=== PATIENT | female | born 1960 | race Caucasian/White ===

== ENCOUNTER 2019-04-18 17:42 | Inpatient (IN) ==
[2019-04-18] MEDS ORDERED: NS 1,000 ML IV ONE ×3 (17:51→20:00)
[2019-04-18] MEDS ORDERED: ZOFRAN IV ONE (18:04)
[2019-04-18 18:28] LABS: URINE SOURCE CLEAN CATCH
[2019-04-18 18:36] LABS: BILIRUBIN URINE NEGATIVE (NEGATIVE); BLOOD URINE NEGATIVE (NEGATIVE); COLOR ORANGE; GLUCOSE URINE 500 mg/dL (NEGATIVE); KETONE URINE NEGATIVE (NEGATIVE); LEUKOCYTES URINE LARGE (NEGATIVE); NITRITE URINE NEGATIVE (NEGATIVE); PH URINE 6.5; PROTEIN URINE TRACE mg/dL (NEGATIVE); SP GRAVITY URINE 1.016; TURBIDITY URINE HAZY (CLEAR); UROBILINOGEN URINE 2 mg/dL (NORMAL)
[2019-04-18] MEDS ORDERED: NS 500 ML IV ONE (18:36)
[2019-04-18 18:37] LABS: BASO# 0.01 X1000 (0.0-0.2); BASO% 0.2 % (0.0-0.8); EOS# 0.02 X1000 (0.0-0.7); EOS% 0.3 % (0.0-10.0); HEMATOCRIT 33.6 % (37.0-47.0); HEMOGLOBIN 11.2 g/dL (12.0-16.0); LYMPH# 0.57 X1000 (1.2-3.4); LYMPH% 9.9 % (20.5-51.1); MCH 30.4 PG (27-31); MCHC 33.3 g/dL (33-37); MCV 91.1 FL (81-99); MONO# 0.13 X1000 (0.11-0.59); MONO% 2.3 % (1.7-9.3); MPV 9.2 FL (7.4-10.4); NEUT% 87.3 % (42.2-75.2); PLT 277 X1000 (130-400); RBC 3.69 XMIL (4.2-5.4); RDW 12.5 % (11.5-14.5); UR EPITHELIAL CELLS <10 /HPF (<10); URINE BACTERIA 4+ /HPF; URINE RBC <10 /HPF (<10); URINE WBC TNTC /HPF (<10); WBC 5.73 X1000 (4.8-10.8)
[2019-04-18] MEDS ORDERED: ROCEPHIN 2 GM in NS 50 ML IV ONE (18:42)
[2019-04-18 18:55] LABS: INR 1.09; PROTIME 14.3 Seconds (11.0-16.0)
[2019-04-18 18:56] LABS: PTT 35.2 Seconds (22.3-41.8)
[2019-04-18] MEDS ORDERED: MOTRIN PO ONE (18:57)
[2019-04-18] MEDS ORDERED: VANCOMYCIN 1 GM/NS 1 GM/250 ML IVPB IV ONE (18:57)
[2019-04-18 18:59] LABS: ALB/GLOB RATIO 1.8; ALBUMIN 3.7 g/dL (3.5-5.0); CREATININE 1.2 mg/dL (0.5-0.9); MAGNESIUM 1.6 mg/dL (1.5-2.7); POTASSIUM 3.3 mmol/L (3.5-5.1); TOTAL BILIRUBIN 0.93 mg/dL (0.20-1.00); TOTAL PROTEIN 5.8 g/dL (6.3-8.3)
[2019-04-18 19:20] LABS: ALLEN TEST YES; BE -0.1 mmoll (-3.0-3.0); BLOOD TYPE ARTERIAL; HCO3-(ACT) 24.7 mmoll (20.0-26.0); METHB 1.4 % (0.0-1.5); O2(CT) 11.1 mL/dL (15.0-23.0); O2HB 90.1 % (95.0-99.0); PCO2(98.6) 33 mmHg (35-45); PO2(98.6) 58 mmHg (60-100); SAMPLE BLOOD; SAO2 94.1 % (95.0-100.0); THB 8.7 g/dL (11.5-17.4); pH(98.6) 7.46 (7.35-7.45)
[2019-04-18 19:21] LABS: MODALITY ROOM AIR
[2019-04-18] MEDS ORDERED: ZOSYN 3.375 GM in NS 50 ML IV ONE (19:42)
[2019-04-18] MEDS ORDERED: LEVOPHED 8 MG in D5 1/2 NS 250 ML IV SCH (19:45)
--- NOTE | 2019-04-18 20:58 | Diag Imaging Result Doc PS360 ---
CT ABD/PELVIS W/IV CONT ONLY - 04/18/2019 INDICATION: abd pain llq, FEVER, CHILLS COMPARISON: 04/22/2018 FINDINGS: The lung bases are clear and the heart size is normal. The liver, gallbladder, spleen, pancreas, adrenals, and kidneys are normal. No bowel obstruction or inflammation. Urinary bladder, uterus, and rectum are normal. 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 There are moderate degenerative changes of the spine. No acute or suspicious bony lesion. IMPRESSION: No acute disease. This exam was performed using automated exposure control, adjustment of mA or kV according to patient size, and/or use of iterative reconstruction technique Electronically signed by Jj Olivares 04/18/2019 8:55 PM
--- NOTE | 2019-04-18 21:01 | Diag Imaging Result Doc PS360 ---
CHEST-PORTABLE - 04/18/2019 INDICATION: cp COMPARISON: 04/22/2018 FINDINGS: The lungs are normally expanded and clear. Heart size and mediastinal contours are normal. No pneumothorax or pleural effusion. IMPRESSION: Negative exam. Electronically signed by Jj Olivares 04/18/2019 8:59 PM
--- NOTE | 2019-04-18 21:08 | PROVIDER DOCUMENTATION ---
This chart was entered by Beverley Lou Scribe, acting as scribe for Gloria Moeller CRNP. HPI-Abdominal Pain/GI Problem - General Chief Complaint: SEPSIS ALERT - D Stated Complaint: TEMP 104 PER PT Time Seen by Provider: 04/18/19 17:50 Source: patient Allergies/Adverse Reactions: Patient Allergies Allergy/AdvReac Type Severity Reaction Status Date / Time No Known Allergies Allergy Verified 03/25/18 13:54 Home Medications: Home Medication List Medication Instructions Recorded Confirmed Last Taken Type ATORVAstatin [Lipitor] 40 mg PO QHS 03/25/18 04/18/19 1 Day Ago History ~03/24/18 Amitriptyline [Elavil] 100 mg PO HS 03/25/18 04/18/19 1 Day Ago History ~03/24/18 Benazepril/Hydrochlorothiazide 1 each PO QAM 03/25/18 04/18/19 1 Day Ago History [Benazepril-Hctz 20-12.5 mg Tab] ~03/24/18 Furosemide [Lasix] 40 mg PO DAILY 03/25/18 04/18/19 1 Day Ago History ~03/24/18 Insulin Aspart [Novolog] 10 unit SQ TID 03/25/18 04/18/19 03/25/18 History Insulin Glargine [Lantus] 60 unit SUBQ QHS 03/25/18 04/18/19 1 Day Ago History ~03/24/18 Potassium Chloride 10 meq PO DAILY 03/25/18 04/18/19 1 Day Ago History ~03/24/18 Ranitidine HCl [Zantac] 150 mg PO QAM 03/25/18 04/18/19 1 Day Ago History ~03/24/18 Potassium Chloride E.r. [Klor-Con] 20 meq PO BID tablet 03/29/18 04/18/19 Unk nown Rx Promethazine [Phenergan] 25 mg PO Q6H PRN PRN #20 tab 04/22/18 04/18/19 Unknown Rx Topiramate 50 mg PO BID 04/18/19 04/18/19 Unknown History - History of Present Illness-ABD Nature of Presenting Problems: 58 y/o female presents to ED with LLQ pain, fever, and N/V onset today. Pt reports highest temperature at home was 104. Pt states she took tylenol prior to arrival. Pt reports hx diverticulitis. Pt is alert and oriented. Abdominal Pain Onset Location: reports: LLQ Pain Radiation: reports: no radiation Quality of Pain: reports: aching Severity in ED: reports: mild, moderate Onset/Duration: reports: this morning Timing: reports: still present Activities at Onset: reports: none Exposure to sick contacts?: No Modifying Factors: worse with: palpation Associated Symptoms: reports: fever/chills, nausea, vomiting, other (LLQ pain) Last BM: unsure Dark Stools Present?: reports: none noticed Rectal Bleeding: reports: none Rectal Pain: reports: none Similar Symptoms Previously?: No Recently seen or treated by another doctor?: No Review of Systems - Adult - REVIEW OF SYSTEMS - ADULT Constitutional: reports: fever. denies: chills Eyes: reports: no symptoms reported Ears, Nose, Mouth & Throat: reports: no symptoms reported Cardiovascular: denies: chest pain, palpitations Respiratory: denies: cough, shortness of breath Gastrointestinal: reports: abdominal pain, nausea, vomiting. denies: diarrhea Genitourinary: reports: no symptoms reported Musculoskeletal: reports: no symptoms reported Integumentary: reports: no symptoms reported Neurological: reports: no symptoms reported Psychiatric: reports: no symptoms reported Endocrine: reports: no symptoms reported Hematologic/Lymphatic: reports: no symptoms reported Allergic/Immunologic: reports: no symptoms reported All Other Systems: Reviewed and Negative Past History - Adult - PAST MEDICAL HISTORY-ADULT Review of Records: reports: Old Records Reviewed, Nursing Assessment Review, Medications Reviewed Major Childhood Illnesses: reports: denies history Cardiovascular: reports: HTN, heart valve problem (MVP), hyperlipidemia Respiratory: reports: denies history Gastrointestinal: reports: denies history Obstetrical/Gynecological: reports: denies history Genitourinary: reports: denies history Musculoskeletal: reports: other (neuropathy) Neurological: reports: denies history Psychiatric: reports: depression Endocrine/Immune: reports: Diabetes Diabetes Type: Type 2 Other Conditions: reports: denies history - PRIOR SURGERIES/PROCEDURES Surgical/Procedure History: reports: BTL, orthopedic (extremity) (hand) - IMMUNIZATION STATUS Childhood Immunizations: See Nurse Assessment Flu Vaccine: See Nurse Assessment - FAMILY HISTORY Family History: reviewed, not pertinent - SOCIAL HISTORY Smoking: quit greater than 1 year Substance Use: none/never Alcohol Use Frequency: never Living Situation: family Physical Exam-General - PHYSICAL EXAM-ADULT Initial Vital Signs Reviewed: Yes (febrile) - CONSTITUTIONAL General Appearance: alert, no apparent distress, other (ill appearing). negative: appears well - EYES Eyes: PERRL/EOMI, pink conjunctivae - HEAD, EARS, NOSE, MOUTH & THROAT HENMT: normocephalic/atraumatic, moist mucous membranes, normal ENT inspection - NECK Neck: non-tender, full range of motion - RESPIRATORY Respiratory: chest non-tender, lungs clear, normal breath sounds - CARDIOVASCULAR Cardiovascular: normal peripheral pulses, regular rate, rhythm - GASTROINTESTINAL (ABDOMEN) Abdominal Exam: normal bowel sounds, soft, tenderness (LLQ) - MUSCULOSKELETAL Back Exam: normal inspection, no CVA tenderness, no vertebral tenderness Extremity: normal range of motion, non-tender - SKIN Integumentary: normal color, warm/dry - NEUROLOGIC Neurologic: grossly normal - PSYCHIATRIC Psych/Mental Status: normal mood/affect, normal thought content, normal thought process, oriented x 3 Progress - PLAN OF CARE/RESULTS Progress/Plan/Lab Results: Vital Signs - 8 hr 04/18/19 17:46 Temperature 100.5 F H Pulse Rate 120 H Respiratory Rate 20 Blood Pressure 149/110 O2 Sat by Pulse Oximetry 94 L Orders Category Date Time Status Cardiac Monitoring DIRECTED Care 04/18/19 17:50 Active Finger Stick Blood Sugar (ED) DIRECTED Care 04/18/19 17:51 Active IV Insertion ORDERED Care 04/18/19 17:50 Active Notify MD of + Sepsis Screen NOW Care 04/18/19 17:50 Active Notify Physician As Ordered Care 04/18/19 17:[address] ABD/PELVIS W/IV CONT ONLY [CT] Stat Exams 04/18/19 18:04 Ordered BLOOD CULTURE [BLDCUL] Stat Lab 04/18/19 17:50 Uncollected CBC WITH DIFF [HEME] Stat Lab 04/18/19 17:50 Uncollected CK PROFILE [SP CHEM] Stat Lab 04/18/19 17:50 Uncollected COMPREHENSIVE METABOLIC PANEL [CHEM] Stat Lab 04/18/19 17:50 Uncollected Flu Swab [INFLUENZA SCREEN A/B] Stat Lab 04/18/19 17:51 Uncollected LACTATE, PLASMA [CHEM] Q3H Lab 04/18/19 18:00 Uncollected LACTATE, PLASMA [CHEM] Q3H Lab 04/18/19 21:00 Uncollected LACTATE, PLASMA [CHEM] Q3H Lab 04/19/19 00:00 Uncollected MAGNESIUM [CHEM] Stat Lab 04/18/19 17:51 Uncollected PROTIME WITH INR [COAG] Stat Lab 04/18/19 17:50 Uncollected PTT [COAG] Stat Lab 04/18/19 17:50 Uncollected TROPONIN T Stat Lab 04/18/19 17:50 Uncollected TYPE & SCREEN [BBK] Stat Lab 04/18/19 17:51 Uncollected URINALYSIS W/POSS RFLX CULT [URINALYSIS] Stat Lab 04/18/19 17:50 Uncollected 0.9% Sodium Chloride Inj [Ns] 1,000 ml Med 04/18/19 17:51 Active IV 999 mls/hr Oxygen Device Stat Oth 04/18/19 17:50 Active 1855: notified by RN pt hypotensive, fluids have not been started. Pt is alert and oriented. RN to begin fluids, Dr Dudley has now seen and examined the patient. he recommends adding vancomycin adn agrees with current other orders. Will monitor repsonse to IVF and order pressors as needed. 1904: d/w Dr. Cubatien the patients impaired renal function and CT contrast. He recommends hydration and completing the CT with contrast. 1942: Pt BP remains 80's SBP Dr DUDLEY back to bedside with BALANCE STAFF INSPECTOR, recommends starting levophed gtt and addding zosyn for broad coverage even with rocephen 1999: Dr Dudley at bedside. Awaiting levophed gtt to be started. 2024: Bp has improved with levophed qtt, awaiting ct results for admission Laboratory Tests 04/18/19 04/18/19 04/18/19 18:08 18:08 18:08 WBC 5.73 RBC 3.69 L Hgb 11.2 L Hct 33.6 L MCV 91.1 MCH 30.4 MCHC 33.3 RDW Std Deviation 12.5 Plt Count 277 MPV 9.2 Immature Gran % (Auto) 0.0 Neut % (Auto) 87.3 H Lymph % (Auto) 9.9 L [place] % (Auto) 2.3 Eos % (Auto) 0.3 Baso % (Auto) 0.2 Immature Gran # (Auto) 0.00 Neut # (Auto) 5.00 Lymph # (Auto) 0.57 L [place] # (Auto) 0.13 Eos # (Auto) 0.02 Baso # (Auto) 0.01 PT 14.3 INR 1.09 PTT (Actin FS) 35.2 Specimen Type Sample Site pH pCO2 pO2 HCO3 Base Excess Oxyhemoglobin ABG O2 Sat (Calculated) ABG O2 Saturation ABG Carboxyhemoglobin ABG Methemoglobin Johnny Test A-a O2 Difference Total Hemoglobin Lactate Blood Gas Modality FiO2 % Sodium 136 Potassium 3.3 L Chloride 97 L Carbon Dioxide 21 L Anion Gap 18 BUN 28 H Creatinine 1.2 H Estimated GFR/1.73 m2 46 BUN/Creatinine Ratio 23 Glucose 172 H Calculated Osmolality 282 Calcium 9.0 Magnesium 1.6 Total Bilirubin 0.93 AST 58 H ALT 53 H Alkaline Phosphatase 119 H Creatine Kinase 114 Troponin T Total Protein 5.8 L Albumin 3.7 Globulin 2.1 Albumin/Globulin Ratio 1.8 Plasma Lactate Urine Source Urine Color Urine Turbidity Urine pH Ur Specific [place] Urine Protein Ur Glucose (Stick) Ur Ketones (Stick) Urine Blood Urine Nitrite Urine Bilirubin Urobilinogen Dipstick Urine Leukocytes Urine WBC (Auto) Urine RBC (Auto) U Epithel Cells (Auto) Urine Bacteria (Auto) Blood Type Blood Type Confirm Antibody Screen 04/18/19 04/18/19 04/18/19 18:08 18:08 18:08 WBC RBC Hgb Hct MCV MCH MCHC RDW Std Deviation Plt Count MPV Immature Gran % (Auto) Neut % (Auto) Lymph % (Auto) [place] % (Auto) Eos % (Auto) Baso % (Auto) Immature Gran # (Auto) Neut # (Auto) Lymph # (Auto) [place] # (Auto) Eos # (Auto) Baso # (Auto) PT INR PTT (Actin FS) Specimen Type Sample Site pH pCO2 pO2 HCO3 Base Excess Oxyhemoglobin ABG O2 Sat (Calculated) ABG O2 Saturation ABG Carboxyhemoglobin ABG Methemoglobin Johnny Test A-a O2 Difference Total Hemoglobin Lactate Blood Gas Modality FiO2 % Sodium Potassium Chloride Carbon Dioxide Anion Gap BUN Creatinine Estimated GFR/1.73 m2 BUN/Creatinine Ratio Glucose Calculated Osmolality Calcium Magnesium Total Bilirubin AST ALT Alkaline Phosphatase Creatine Kinase Troponin T 0.018 Total Protein Albumin Globulin Albumin/Globulin Ratio Plasma Lactate 2.8 H Urine Source CLEAN CATCH Urine Color ORANGE Urine Turbidity HAZY Urine pH 6.5 Ur Specific [place] 1.016 Urine Protein TRACE A Ur Glucose (Stick) 500 A Ur Ketones (Stick) NEGATIVE Urine Blood NEGATIVE Urine Nitrite NEGATIVE Urine Bilirubin NEGATIVE Urobilinogen Dipstick 2 A Urine Leukocytes LARGE A Urine WBC (Auto) TNTC A Urine RBC (Auto) <10 U Epithel Cells (Auto) <10 Urine Bacteria (Auto) 4+ Blood Type Blood Type Confirm Antibody Screen 04/18/19 04/18/19 04/18/19 18:08 19:01 19:10 WBC RBC Hgb Hct MCV MCH MCHC RDW Std Deviation Plt Count MPV Immature Gran % (Auto) Neut % (Auto) Lymph % (Auto) [place] % (Auto) Eos % (Auto) Baso % (Auto) Immature Gran # (Auto) Neut # (Auto) Lymph # (Auto) [place] # (Auto) Eos # (Auto) Baso # (Auto) PT INR PTT (Actin FS) Specimen Type ARTERIAL Sample Site R RADIAL pH 7.46 H pCO2 33 L pO2 58 L HCO3 24.7 Base Excess -0.1 Oxyhemoglobin 90.1 L ABG O2 Sat (Calculated) 11.1 L ABG O2 Saturation 94.1 L ABG Carboxyhemoglobin 3.00 H ABG Methemoglobin 1.4 Johnny Test YES A-a O2 Difference 50.0 Total Hemoglobin 8.7 L Lactate 1.00 Blood Gas Modality ROOM AIR FiO2 % 21.0 Sodium Potassium Chloride Carbon Dioxide Anion Gap BUN Creatinine Estimated GFR/1.73 m2 BUN/Creatinine Ratio Glucose Calculated Osmolality Calcium Magnesium Total Bilirubin AST ALT Alkaline Phosphatase Creatine Kinase Troponin T Total Protein Albumin Globulin Albumin/Globulin Ratio Plasma Lactate Urine Source Urine Color Urine Turbidity Urine pH Ur Specific [place] Urine Protein Ur Glucose (Stick) Ur Ketones (Stick) Urine Blood Urine Nitrite Urine Bilirubin Urobilinogen Dipstick Urine Leukocytes Urine WBC (Auto) Urine RBC (Auto) U Epithel Cells (Auto) Urine Bacteria (Auto) Blood Type O POSITIVE Blood Type Confirm O POSITIVE Antibody Screen NEGATIVE Result Diagrams: 04/18/19 18:08 04/18/19 18:08 - EKG 1 Time of EKG reading by physician:: 20:38 EKG Read and Signed by:: Sunny Dudley EKG Interpretation (*Must complete 3 of following elements*): Abnormal Rate: 102 Rhythm: Sinus tach with occasional PVCs [place]: normal QRS: other (low voltage QRS) NV Interval: normal ST Wave: non-specific ST changes - XRAY 1 XRAY Study: Chest Impression: See EMR Report (CHEST-PORTABLE - 04/18/2019 INDICATION: cp COMPARISON: 04/22/2018 FINDINGS: The lungs are normally expanded and clear. Heart size and mediastinal contours are normal. No pneumothorax or pleural effusion. IMPRESSION: Negative exam. Electronically signed by Jj Olivares 04/18/2019 8:59 PM 04/18/192058 Interpreting Physician: Jj Olivares MD Dictated Date/Time: 04/18/192055 cc: Sunny Dudley MD; Lamar Georges) - CT/MRI 1 CT Study: Abdomen, Pelvis Impression: See EMR Report ([facility] - [address], [address] [address] [facility] - [address] [place] [address] Department of Imaging Patient: FÁTIMA DELEON Date: 04/18/19#: [id number] : 8ADM Status: [facility] ERAt#: [id number] Age/Sex: 58/FRoom/Bed: Loc: ED Ordering Physician: Gloria Moeller Family Physician: Lamar Georges Reason for Procedure: abd pain llq, FEVER, CHILLS Signed CT ABD/PELVIS W/IV CONT ONLY - 04/18/2019 INDICATION: abd pain llq, FEVER, CHILLS COMPARISON: 04/22/2018 FINDINGS: The lung bases are clear and the heart size is normal. The liver, gallbladder, spleen, pancreas, adrenals, and kidneys are normal. No bowel obstruction or inflammation. Urinary bladder, uterus, and rectum are normal. 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 There are moderate degenerative changes of the spine. No acute or suspicious bony lesion. IMPRESSION: No acute disease. This exam was performed using automated exposure control, adjustment of mA or kV according to patient size, and/or use of iterative reconstruction technique Electronically signed by Jj Olivares 04/18/2019 8:55 PM 04/18/192054 Interpreting Physician: Jj Olivares MD Dictated Date/Time: 04/18/192050 cc: Gloria Moeller; Lamar Georges) - CONSULTS/PCP/HOSPITALIST Notification #1 *Consult/PCP/Hospitalist*: hospitalist paged at 2101 Time Discussed: 21:07 Reason/Comments: UTI, sepsis Consult Disposition: Admit Departure - Departure Date of Disposition Decision: 04/18/19 Time of Disposition Decision: 21:04 DIAGNOSIS: UTI (urinary tract infection), Septic shock Disposition: ADMITTED INPATIENT 09 Certified Medical Emergency: Emergent Condition: Fair Referrals and Follow-Ups: Lamar Georges CRNP [Primary Care Provider] - - Critical Care Note This patient required my direct & personal management of CC.: No Attestation - Physician/ MILLY Attestation Patient care was provided by Advanced Practice Provider:: Yes Advanced Practice Provider:: Gloria Moeller Advanced Practice Provider documentation review:: The Mid-level provider documentation, treatment plan and medical decision making was reviewed by the physician who agrees with all treatment and medical decision making by the [facility]. The physician spent face to face time with patient:: Yes Advanced Practice Provider documentation review:: Supervising physician onsite and consulted in the evaluation and care of this patient. The physician did have a face to face encounter with the patient. This chart was documented by the indicated scribe, (Beverley Lou Scribe) and accurately reflects the services I performed and decisions made by me, Gloria Moeller CRNP, as attested by the provider's signature.
[2019-04-18] MEDS ORDERED: SODIUM CHLORIDE 0.9% INJ SCH (22:00)
[2019-04-18] MEDS ORDERED: TYLENOL PO PRN (23:16)
[2019-04-18] MEDS ORDERED: RESTORIL PO ONE (23:16)
[2019-04-18] MEDS: NS 1,000 ML IV SCH (23:19)
[2019-04-18] MEDS: ZOSYN 3.375 GM in NS 50 ML IV SCH (23:20)
[2019-04-18] MEDS: PROTONIX IV SCH (23:21)
--- NOTE | 2019-04-18 23:37 | EKG Report ---
Test Performed on : 04/18/2019 8:37:07 PM Test Reason : tachy Blood Pressure : / mmHG Vent. Rate : 102 BPM Atrial Rate : 102 BPM P-R Int : 154 ms QRS Dur : 078 ms QT Int : 338 ms P-R-T Axes : 064 -19 070 degrees QTc Int : 440 ms Sinus tachycardia. with occasional premature ventricular complexes. Low voltage QRS Nonspecific ST and T wave abnormality Abnormal ECG When compared with ECG of 22-APR-2018 14:19, Criteria for Septal infarct are no longer present Nonspecific T wave abnormality now evident in Lateral leads Unconfirmed Result
[2019-04-19] MEDS: ZOFRAN IV PRN ×2 (00:04→06:17)
[2019-04-19 00:46] LABS: URINE SOURCE CATH
[2019-04-19 01:49] LABS: COLOR YELLOW; UR EPITHELIAL CELLS <10 /HPF (<10); URINE BACTERIA 1+ /HPF; URINE RBC <10 /HPF (<10)
[2019-04-19 01:50] LABS: BILIRUBIN URINE NEGATIVE (NEGATIVE); BLOOD URINE TRACE (NEGATIVE); GLUCOSE URINE 100 mg/dL (NEGATIVE); KETONE URINE 20 mg/dL (NEGATIVE); LEUKOCYTES URINE SMALL (NEGATIVE); NITRITE URINE POSITIVE (NEGATIVE); PROTEIN URINE TRACE mg/dL (NEGATIVE); SP GRAVITY URINE 1.005; TURBIDITY URINE CLEAR (CLEAR); UROBILINOGEN URINE NORMAL (NORMAL)
[2019-04-19] MEDS: ZOSYN 3.375 GM in NS 50 ML IV SCH ×4 (04:20→21:20)
--- NOTE | 2019-04-19 06:07 | HISTORY AND PHYSICAL ---
CHIEF COMPLAINT: Fever, left flank pain and back pain one day prior to admission. HISTORY OF PRESENT ILLNESS: Ms. Shellie Alcala is a 58-year-old female, and she does have a history of diabetes mellitus, hypertension, hyperlipidemia and presents to the hospital because of fever, along with the left flank pain and back pain one day prior to admission. She also describes having dysuria and also low abdominal pains. She denies any hematuria. On arrival to the hospital, UA did show a large amount of leukocytes with numerous WBCs. She was also noted to be hypotensive while in the emergency room. Her blood pressure was as low as 74/50. She required IV fluids and also pressors, and has now been admitted to the intensive care unit for further management. PAST MEDICAL HISTORY: Hypertension, mitral valve prolapse, hyperlipidemia, diabetes mellitus, diverticulosis, diabetic gastroparesis, chronic pain. PAST SURGICAL HISTORY: She has had bilateral tubal ligation, as well as left foot surgery. SOCIAL HISTORY: No cigarette smoking. No alcohol or drug use. ALLERGIES: No known drug allergies. FAMILY HISTORY: Positive for coronary artery disease, as well as diabetes. MEDICATIONS: Medications include the followin. Atorvastatin 40 mg p.o. at bedtime. 2. Elavil 100 mg p.o. at bedtime. 3. Benazepril/hydrochlorothiazide 20/12.5 once a day. 4. Lasix 40 mg p.o. daily. 5. NovoLog 10 units subcutaneous 3 times a day. 6. Lantus 60 units subcutaneous twice a day. 7. Potassium chloride 10 mEq p.o. daily. 8. Zantac 150 mg p.o. in the morning. 9. Potassium chloride extended release 20 mEq p.o. twice a day. 10. Promethazine 25 mg p.o. q. 6 hours p.r.n. 11. Topiramate 50 mg p.o. twice a day. REVIEW OF SYSTEMS: General: Question of fever. EMT I/85: No headaches. Eyes: Blurred vision. ENT: No sinus problem, hearing loss. Cardiovascular: No chest pain. Respiratory: No cough. GI: Has nausea with vomiting. Also, constipation with abdominal pains. : She has dysuria, but no hematuria. Musculoskeletal: Has joint pains. Dermatology: No skin lesions. Hematologic: No bleeding problems. Psychiatric: No anxiety or depression. Allergic/immunologic: No symptoms suggestive of allergic rhinitis. Endocrinology: She has diabetes, but no thyroid disease. EXAMINATION: Vital Signs: Vital signs are as follows: Temperature is 99.3, pulse is 80, respirations 14, blood pressure is 118/64, oxygen saturation is 93%. HEENT: She is atraumatic, normocephalic. She is anicteric. Extraocular movements intact. Pupils equal, poorly reactive to light. No oral lesions. Neck: No lymphadenopathy or thyromegaly. Cardiovascular system: S1, S2. Respiratory system: Has evidence of good air entry bilaterally. Abdomen: Soft. She has some vague tenderness to the left flank region. No masses felt. Extremities: No evidence of edema in the lower extremities. Central nervous system: No obvious focal deficit noted. LABORATORY DATA: WBC is 5.73, hematocrit is 33.6, platelet count is 277. INR is 1.07. ABG 7.46/33/58/94.1. Sodium 136, potassium 3.3, chloride is 97, bicarbonate is 21. BUN is 28, creatinine is 1.2, glucose 172. AST 58, ALT 53, alkaline phosphatase 119. UA shows large amount of leukocytes with numerous WBCs. IMAGING STUDIES: Chest x-ray normal. CT scan of the abdomen and pelvis with no acute disease. EKG shows sinus tachycardia with occasional PVCs and nonspecific ST-T abnormalities. ASSESSMENT AND PLAN: 1. Septic shock. Maintain patient on intravenous fluids, pressors, antibiotics. Follow up on culture report. 2. Urinary tract infection. Obtain urine culture. Maintain patient on empiric antibiotics. 3. Abnormal liver function tests. Check hepatitis panel, as well as abdominal ultrasound. 4. Anemia. Check iron studies along with B 12 and folate level and stool for occult blood. 5. Hypokalemia. Replace potassium. Check magnesium level. 6. Acute kidney injury. Maintain patient on intravenous fluids. Follow up on renal function. Avoid nephrotoxic agent. 7. Diabetes mellitus. Maintain patient on sliding scale insulin. Monitor blood sugar levels. Check hemoglobin A1c level. 8. Hypertension. The patient is currently on pressors now for low blood pressure. 9. Deep vein thrombosis prophylaxis. Sequential compression devices. 10. Gastrointestinal prophylaxis. Proton pump inhibitor. cc: Han Suazo MD
[2019-04-19] MEDS: HUMULIN R SUBQ SCH ×4 (06:17→20:28)
[2019-04-19] MEDS: NS 1,000 ML IV SCH ×2 (06:17→10:47)
[2019-04-19 06:31] LABS: HEMOGLOBIN A1C 7.3 % (4.8-6.0)
[2019-04-19 06:48] LABS: IRON SATURATION 6 %; TIBC 196 ug/dL; TOTAL IRON 11 ug/dL (49-151); UNBOUND IRON 185 ug/dL (112-346)
[2019-04-19] MEDS ORDERED: PHENERGAN PO PRN (09:22)
[2019-04-19 09:47] LABS: CALCIUM 8.3 mg/dL (8.8-10.2); CREATININE 1.2 mg/dL (0.5-0.9); POTASSIUM 3.2 mmol/L (3.5-5.1)
[2019-04-19] MEDS ORDERED: LANTUS INSULIN SUBQ SCH ×2 (10:00→21:00)
--- NOTE | 2019-04-19 10:35 | PROGRESS NOTE ---
DATE: 04/19/2019 INTERVAL HISTORY: Ms. Alcala presented with septic shock due to acute urinary tract infection. Overnight, she did have a fever episode. Her pulse has been decreasing. She continues to feel not well. She denies known history of coronary artery disease or smoking. SUBJECTIVE: Ms. Alcala continues to complain of left lower quadrant discomfort. She denies any more nausea or vomiting. She was able to eat her breakfast a little bit. Her last bowel movement was probably 5 to 6 days ago. VITALS: Currently temperature of 99.5 degrees, pulse of 86, respiratory rate 15, blood pressure 106/55. She is saturating 95% on room air. PHYSICAL EXAMINATION: She is not in any acute distress.HEENT: Oral cavity is moist. Lungs: Air entry bilaterally equal. No wheeze, rhonchi, crackles. Cardiovascular: S1, S2 normal. No murmur or gallop. Abdomen: Soft. Left lower quadrant tenderness is present. She has bilateral back tenderness as well. Active bowel sounds. Extremity: She does not have lower extremity edema she is alert and oriented x3. : She has a urine catheter. LABS: Repeat BMP suggest hypokalemia. She continues to have kidney dysfunction, unclear if this suggests new or chronic. She has hyperglycemia. Her hypomagnesemia is currently being repleted. Urinalysis positive. Urine culture and blood culture are in lab. No new imaging. ASSESSMENT AND PLAN: 1. Septic shock from acute urinary tract infection due to gram-negative radha. Follow up final urine and blood culture results. She received 4 L of intravenous fluids boluses. I will keep her on current rate of intravenous fluids and intravenous norepinephrine to maintain MAP more than 65 mmHg. Continue intravenous Zosyn. Her CT scan of the abdomen and pelvis did not detect acute pyelonephritis. 2. Transaminitis and lactic acidosis with kidney dysfunction. These could be in the setting of septic shock. I will follow up with liver function tests. Hepatitis panel has been ordered. Her kidney dysfunction is currently stable. She previously did have intermittent kidney dysfunction and could potentially have a component of diabetic nephropathy. I will continue to monitor it. 3. Hypokalemia and hypomagnesemia currently being repleted. 4. History of insulin-dependent diabetes mellitus and diabetic peripheral neuropathy. Resume lower than her usual dose of insulin glargine and insulin mealtime with sliding scale insulin. Considering her oral intake could be inconsistent, I will adjust insulin according to her blood sugar response. Also continue her topiramate for diabetic peripheral neuropathy. 5. Constipation. Her last bowel movement was 5 days ago according to report. I will start her on stool softeners. She also had history of diverticulosis. DISPOSITION: I will continue to monitor patient in ICU for need for intravenous pressors. TIME SPENT: Plan of care discussed with her. All of her questions satisfactorily answered. cc: Vince Patino MD MTDD
[2019-04-19] MEDS: MIRALAX PO SCH ×2 (10:47→21:29)
[2019-04-19] MEDS: DULCOLAX PR SCH ×2 (10:48→21:29)
[2019-04-19] MEDS: MAGNESIUM SULFATE 2 GM/S.W.I. 2 GM/50 ML IVPB IV SCH ×2 (10:49→13:30)
[2019-04-19] MEDS: HUMALOG SUBQ SCH ×2 (10:50→17:18)
[2019-04-19] MEDS: KLOR-CON PO SCH ×2 (11:22→20:29)
[2019-04-19] MEDS ORDERED: LANTUS INSULIN SUBQ ONE (14:04)
--- NOTE | 2019-04-19 16:08 | Diag Imaging Result Doc PS360 ---
EXAM: US ABDOMEN-COMPLETE HISTORY: abn lfts TECHNIQUE: Abdominal ultrasound COMPARISON: CT from 02/17/2020 FINDINGS: No abdominal aortic aneurysm. There is atherosclerosis. Normal inferior vena cava. There is fatty infiltration of the liver. The common bile duct measures 6 mm. There is sludge within the gallbladder with several tiny stones. Normal right kidney. No hydronephrosis. Normal left kidney. No hydronephrosis. Spleen measures 13.4 cm in length. No ascites. IMPRESSION: 1.Fatty infiltration of the liver 2.Mild cholelithiasis 3.Mild splenomegaly 4. Electronically signed by Seven Hancock 04/19/2019 4:06 PM
[2019-04-19] MEDS: LANTUS INSULIN SUBQ SCH (20:29)
[2019-04-19] MEDS: LIPITOR PO SCH (20:29)
[2019-04-19] MEDS: ELAVIL PO SCH (20:30)
[2019-04-19] MEDS: TOPAMAX PO SCH (20:30)
[2019-04-19] MEDS: PROTONIX IV SCH (21:20)
[2019-04-20] MEDS: NS 1,000 ML IV SCH (01:11)
[2019-04-20] MEDS: ZOSYN 3.375 GM in NS 50 ML IV SCH ×4 (03:06→21:08)
[2019-04-20 05:48] LABS: BASO# 0.02 X1000 (0.0-0.2); BASO% 0.3 % (0.0-0.8); EOS% 1.7 % (0.0-10.0); HEMATOCRIT 29.7 % (37.0-47.0); HEMOGLOBIN 9.7 g/dL (12.0-16.0); LYMPH# 1.26 X1000 (1.2-3.4); MCH 30.3 PG (27-31); MCHC 32.7 g/dL (33-37); MCV 92.8 FL (81-99); MONO# 0.66 X1000 (0.11-0.59); NEUT# 3.96 X1000 (1.4-6.5); PLT 198 X1000 (130-400); RDW 12.3 % (11.5-14.5)
[2019-04-20 06:22] LABS: AGAP 11; BUN 14 mg/dL (8-22); CALCIUM 8.1 mg/dL (8.8-10.2); CHLORIDE 107 mmol/L (98-107); COSMO 287; CREATININE 0.9 mg/dL (0.5-0.9); ESTIMATED GFR > 60; GLUCOSE 290 mg/dL (70-104); POTASSIUM 3.9 mmol/L (3.5-5.1); SODIUM 138 mmol/L (136-145); TCO2 20 mmol/L (25-35)
[2019-04-20] MEDS: HUMULIN R SUBQ SCH ×4 (06:22→20:45)
[2019-04-20] MEDS: HUMALOG SUBQ SCH ×3 (06:23→16:40)
[2019-04-20 09:28] LABS: ALB/GLOB RATIO 1.4; ALBUMIN 2.9 g/dL (3.5-5.0); DIRECT BILIRUBIN 0.1 mg/dL (0.00-0.20); TOTAL BILIRUBIN 0.34 mg/dL (0.20-1.00)
--- NOTE | 2019-04-20 09:31 | PROGRESS NOTE ---
DATE: 04/20/2019 SUBJECTIVE: The patient reports feeling fine. She has not had any bowel movement for the last week. She reported that she is aware of the problem and remedy developer not taking care of that. No other issues noted as per nursing staff overnight. She has not required any vasopressors during the last 24 hours. OBJECTIVE: Vital Signs: Temperature 99.2 degrees, heart rate 70, respiratory rate 20, blood pressure 121/62, and O2 saturation 94% on room air. General: On examination, this is a 58-year- old female lying in bed, in no acute distress. Cardiovascular: S1 and S2 heard. No murmurs, gallops, or rubs. Respiratory: Clear bilaterally to auscultation. No work of breathing. Not using accessory muscles. Abdomen: Soft. Mild left lower quadrant tenderness present. No organomegaly noted. Bowel sounds present. Extremities: No clubbing, cyanosis, or edema. Peripheral pulses present in both legs. Genitourinary: The patient has a urinary catheter with clear urine. Neurological: Patient is alert and oriented x3. Moves all extremities. LABORATORY DATA: White cell count 6, hemoglobin 9.7, hematocrit 29.7, platelets are 198,000, with BMP that is unremarkable except glucose 290 with hemoglobin A1c 7.3, calcium 8.1, and urine culture showed Klebsiella pneumoniae. Blood culture showed gram-negative rods, but the final sensitivity is not back from the blood culture. ASSESSMENT AND PLAN: 1. Septic shock from urinary tract infection secondary to Klebsiella pneumoniae. Urine culture show Klebsiella pneumoniae, but blood culture shows still gram-negative rods, but the final sensitivity is not back yet. At this point, we will continue with current antibiotics, in this case Zosyn, and once we have the final results of blood cultures, we will adjust our antibiotic therapy accordingly. The patient will continue with intravenous fluids. As we mentioned before, the patient has not been on any blood pressure or any vasopressors for the last 24 hours. We will continue to monitor. 2. Transaminitis and lactic acidosis with acute kidney injury. Acute kidney injury is completely resolved. We have not checked any transaminase today. We will order it. I have seen the hepatitis panel has been ordered as well. At this point, we will continue to monitor. 3. Hypokalemia, resolved. 4. Hypomagnesemia, resolved. 5. History of insulin dependent diabetes mellitus, diabetic peripheral neuropathy. Patient on home doses of Lantus and sliding scale insulin and Accu-Chek before meals and also at bedtime. 6. Constipation. As we mentioned before, the patient is aware that she has this chronic problem. She refused taking any stool softeners. She has history of diverticulosis. We will continue to monitor. DISPOSITION: I think at this point, the patient is stable and can be transferred to a regular floor. cc: Obi Gill MD
[2019-04-20] MEDS: KLOR-CON PO SCH ×2 (09:59→20:42)
[2019-04-20] MEDS: MIRALAX PO SCH ×2 (09:59→20:41)
[2019-04-20] MEDS: DULCOLAX PR SCH ×2 (09:59→20:47)
[2019-04-20] MEDS: TOPAMAX PO SCH ×2 (09:59→20:43)
[2019-04-20 11:39] LABS: HEPATITIS PROFILE ACUTE SEE COMMENTS
[2019-04-20] MEDS: LIPITOR PO SCH (20:43)
[2019-04-20] MEDS: ELAVIL PO SCH (20:43)
[2019-04-20] MEDS: LANTUS INSULIN SUBQ SCH (20:44)
[2019-04-20] MEDS: PROTONIX IV SCH (21:09)
[2019-04-21] MEDS: ZOSYN 3.375 GM in NS 50 ML IV SCH ×2 (03:36→10:16)
[2019-04-21] MEDS: HUMALOG SUBQ SCH (06:02)
[2019-04-21] MEDS: HUMULIN R SUBQ SCH (06:02)
[2019-04-21 07:59] LABS: BASO# 0.02 X1000 (0.0-0.2); BASO% 0.5 % (0.0-0.8); EOS# 0.11 X1000 (0.0-0.7); EOS% 2.7 % (0.0-10.0); HEMATOCRIT 30.3 % (37.0-47.0); HEMOGLOBIN 9.9 g/dL (12.0-16.0); LYMPH# 1.29 X1000 (1.2-3.4); LYMPH% 31.9 % (20.5-51.1); MCH 30.3 PG (27-31); MCHC 32.7 g/dL (33-37); MCV 92.7 FL (81-99); MONO# 0.31 X1000 (0.11-0.59); MONO% 7.7 % (1.7-9.3); MPV 9.5 FL (7.4-10.4); NEUT# 2.32 X1000 (1.4-6.5); NEUT% 57.2 % (42.2-75.2); PLT 190 X1000 (130-400); RBC 3.27 XMIL (4.2-5.4); RDW 12.3 % (11.5-14.5); WBC 4.05 X1000 (4.8-10.8)
[2019-04-21 08:23] LABS: AGAP 10; ALB/GLOB RATIO 1.2; ALBUMIN 2.8 g/dL (3.5-5.0); ALKALINE PHOSPHATASE 114 U/L (32-104); BUN 10 mg/dL (8-22); CALCIUM 8.1 mg/dL (8.8-10.2); CHLORIDE 108 mmol/L (98-107); COSMO 279; CREATININE 0.9 mg/dL (0.5-0.9); ESTIMATED GFR > 60; GLUCOSE 137 mg/dL (70-104); GOT 14 U/L (10-30); GPT 33 U/L (10-36); PHOSPHORUS 1.9 mg/dL (2.7-4.5); POTASSIUM 3.8 mmol/L (3.5-5.1); SODIUM 139 mmol/L (136-145); TCO2 21 mmol/L (25-35); TOTAL BILIRUBIN 0.31 mg/dL (0.20-1.00); TOTAL PROTEIN 5.2 g/dL (6.3-8.3)
[2019-04-21] MEDS: DULCOLAX PR SCH (10:17)
[2019-04-21] MEDS: MIRALAX PO SCH (10:17)
[2019-04-21] MEDS: KLOR-CON PO SCH (10:17)
[2019-04-21] MEDS: TOPAMAX PO SCH (10:17)
[2019-04-21] MEDS ORDERED: SODIUM PHOSPHATE 35 MMOL in NS 250 ML IV ONE (11:22)
[2019-04-21] MEDS ORDERED: LEVAQUIN 750 MG in NS 150 ML IV SCH (11:30)
[2019-04-21] MEDS ORDERED: NEUTRA-PHOS PO SCH (11:30)
[2019-04-21 13:39] VITALS: BP 135/69
--- NOTE | 2019-04-21 15:26 | DISCHARGE SUMMARY ---
ADMISSION DATE: 04/18/2019 DISCHARGE DATE: 04/21/2019 DISCHARGE DIAGNOSES: 1. Septic shock secondary to Escherichia coli bacteremia and urinary tract infection for Klebsiella pneumonia. 2. Abnormal liver function tests improved. 3. Anemia of chronic disease. 4. Hypokalemia resolved. 5. Acute kidney injury resolved 6. Diabetes Mellitus type 2. 7. Hypertension. PROCEDURES: 1. CT of abdomen and pelvis done on admission showed no acute disease. 2. Chest x-ray done on admission showed negative exam. 3. Abdominal ultrasound showed fatty infiltration of the liver. Mild cholelithiasis and mild splenomegaly. 4. Microbiology showed blood cultures positive for E-coli. 5. Urine culture showed Klebsiella pneumonia. 6. Influenza screen was negative. SUMMARY HOSPITAL COURSE: This is a 58-year-old female with history of diabetes mellitus type 2, hypertension, hyperlipidemia who presented to the emergency department because of fever and left flank pain. She describes dysuria and low abdominal pain as well. At admission she was found to be hypotensive so she was treated like septic shock secondary to urinary infection. She was actually on pressors just for 1 day and then that medication was stopped. We continued with broad-spectrum antibiotic until we found out that patient had E coli in the blood. Fortunately that was sensitive to Levaquin so the patient is feeling much better. Not spiking any fever. White cell count is back to normal and she is almost back to normal. We are going to let this patient go with antibiotics. DISCHARGE PHYSICAL EXAMINATION: Temperature 98.8 degrees, heart rate 70 respiratory rate 16, blood pressure 135/69 O2 saturation 96% on room air. General: This is a 59-year-old female lying in bed, in no acute distress. Cardiovascular: S1, S2 heard. No murmurs, gallops, or rubs. Regular rate and rhythm. Respiratory: Clear bilaterally to auscultation. No work of breathing or using accessory muscles. Abdomen: Soft, nontender to palpation. Bowel sounds present. No organomegaly. Extremities: No clubbing, cyanosis, or edema. Peripheral pulses present in both legs. Neurological: The patient alert and oriented x3. Moves 4 extremities. DISCHARGE DISPOSITION: Home to self-care. LIST OF MEDICATIONS: 1. Levofloxacin 750 mg 1 tablet p.o. daily for 2 weeks. 2. Neutra-Phos 1 pack twice daily for 5 days. 3. Atorvastatin 40 mg 1 tablet p.o. at bedtime. 4. Amitriptyline 100 mg 1 tablet p.o. at bedtime. 5. Benazepril/hydrochlorothiazide 20/12.5, 1 tablet p.o. daily. 6. Furosemide 40 mg 1 tablet p.o. daily. 7. NovoLog 10 units subcutaneously 3 times per day. 8. Lantus 60 units subcutaneous daily. 9. Potassium chloride 10 mEq 1 tablet p.o. daily. 10. Zantac 150 mg 1 tablet p.o. in a.m.. 11. Phenergan 25 mg p.o. q. 6 hours as needed. 12. Topiramate 50 mg 1 tablet p.o. daily. FOLLOWUP: Patient reports having a primary care physician in [place]. She had an appointment on April 24. She has been advised to see her doctor and have a BMP with the phosphorus repeated. cc: Obi Gill MD
== END 2019-04-21 14:23 | disposition home or self-care (01) ==
LOC: ED 17:42 → SUATTDRO 22:04 → ICU 22:04 → 3N 04-20 11:40
PROVIDERS: ATTEND Internal Medicine